=== PATIENT | female | born 1990 | race American Indian/Alaskan Native ===

== ENCOUNTER 2017-06-11 01:41 | Emergency (ER) | payer OTHER | END 2017-06-11 02:50 | disposition home or self-care (01) | LOC: C.ER 01:41 | DX: S61.306A Unspecified open wound of right little finger with damage to nail, initial encounter (principal); W22.8XXA Striking against or struck by other objects, initial encounter; Y92.89 Other specified places as the place of occurrence of the external cause; Y99.0 Civilian activity done for income or pay ==